=== PATIENT | male | born 1995 | race Caucasian/White ===

== ENCOUNTER 2018-09-14 16:55 | Emergency (ER) | payer BC ==
[2018-09-14] MEDS ORDERED: Lidocaine 1% w/Epinephrine 1:100K 20 ML VIAL ONE (17:09)
== END 2018-09-14 18:00 | disposition home or self-care (01) ==
LOC: ERS 16:55
DX: L72.3 Sebaceous cyst (principal); F17.210 Nicotine dependence, cigarettes, uncomplicated
CPT/HCPCS: 10061; J2001